=== PATIENT | female | born 1990 | race Two or more races ===

== ENCOUNTER 2025-09-03 12:41 | Emergency (ER) | payer MEDICAID, OTHER ==
[~2025-09-03] VITALS: Ht 165.1 cm; Wt 86.0 kg
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
[2025-09-03 15:10] VITALS: BP 117/79; PULSE 75; RESP 18; TEMP 98.2; O2SAT 98
== END 2025-09-03 15:13 | disposition home or self-care (01) ==
LOC: ER 12:41
DX: S20.211A Contusion of right front wall of thorax, initial encounter (principal); F17.210 Nicotine dependence, cigarettes, uncomplicated; Z98.51 Tubal ligation status; Z90.49 Acquired absence of other specified parts of digestive tract; V89.2XXA Person injured in unspecified motor-vehicle accident, traffic, initial encounter; Y93.89 Activity, other specified; Y92.410 Unspecified street and highway as the place of occurrence of the external cause; Y99.8 Other external cause status
CPT/HCPCS: 71046